=== PATIENT | male | born 1960 | race Caucasian/White ===

== ENCOUNTER → 2021-04-27 15:00 | Outpatient (BNVA) | payer BC, SELFPAY | PROVIDERS: PCP Internal Medicine; Visit Provider Anesthesiology ==

== ENCOUNTER 2022-02-02 06:14 | Outpatient (REF) | payer BC, SELFPAY ==
--- NOTE | ~2022-02-02 | FL_ITS ---
EXAMINATION: XR FLUOROSCOPY WITH IMAGES CLINICAL INFORMATION: M47.812 - Spondylosis without myelopathy or radiculopathy, cervical region COMPARISON: None. TECHNIQUE: Fluoroscopy performed by Dr. David Craft. Fluoroscopy time: 0.2 minutes. Cumulative Dose: 2.94 mGy. DAP: 0.802 Gy-cm2. Images: 3. FINDINGS: There are spinal needles overlying the left lateral masses cervical spine approximately C4, C5, and C6. There is contrast in the paraspinal soft tissues and nerve sheaths. No visible vascular communication. There are degenerative changes cervical spine and hardware. FL/FL guidance in treatment room IMPRESSION: Fluoroscopy for pain management procedure.
== END 2022-02-02 06:15 | disposition home or self-care (01) ==
LOC: HO.RADIR 06:14
PROVIDERS: Visit Provider Anesthesiology
DX: M47.812 Spondylosis without myelopathy or radiculopathy, cervical region (principal); M50.20 Other cervical disc displacement, unspecified cervical region; M50.30 Other cervical disc degeneration, unspecified cervical region; G89.4 Chronic pain syndrome; Z79.891 Long term (current) use of opiate analgesic
CPT/HCPCS: 64490; 64491; J2795; J3300

== ENCOUNTER 2022-04-06 06:03 | Outpatient (REF) | payer BC, SELFPAY ==
--- NOTE | ~2022-04-06 | FL_ITS ---
EXAMINATION: XR FLUOROSCOPY WITH IMAGES CLINICAL INFORMATION: M47.812 - Spondylosis without myelopathy or radiculopathy, cervical region and the COMPARISON: Fluoroscopic spot views 02/02/2022 TECHNIQUE: Fluoroscopy performed by Dr. David Craft. Fluoroscopy time: 0.5 minutes. Cumulative Dose: 3.14 mGy. DAP: 0.632 Gy-cm2. Images: 3. FINDINGS: There are spinal needles overlying the right lateral masses mid to lower cervical spine, approximately C4, C5, and C6. There is contrast in the paraspinal soft tissues and nerve sheaths. No visible vascular communication. There are degenerative changes and prior postsurgical changes with hardware mid to lower cervical spine. FL/FL guidance in treatment room IMPRESSION: Fluoroscopy for pain management procedure.
== END 2022-04-06 06:04 | disposition home or self-care (01) ==
LOC: CF 06:03
PROVIDERS: Visit Provider Anesthesiology
DX: M47.812 Spondylosis without myelopathy or radiculopathy, cervical region (principal); M50.20 Other cervical disc displacement, unspecified cervical region; M50.30 Other cervical disc degeneration, unspecified cervical region; M47.816 Spondylosis without myelopathy or radiculopathy, lumbar region; G89.4 Chronic pain syndrome; Z79.891 Long term (current) use of opiate analgesic
CPT/HCPCS: 64490; 64491; J3300

== ENCOUNTER 2022-07-06 06:01 | Outpatient (REF) | payer BC, SELFPAY ==
--- NOTE | ~2022-07-06 | FL_ITS ---
EXAMINATION: XR FLUOROSCOPY WITH IMAGES CLINICAL INFORMATION: Spondylosis without myelopathy or radiculopathy. COMPARISON: None. TECHNIQUE: Fluoroscopy Supervised By: Iona Springer. Fluoroscopy Time: 0.5 minutes. Cumulative Dose: 7.22 mGy. DAP: 1.96 Gycm2. Images: 6. FINDINGS: There are 6 digital images obtained under fluoroscopy. There is needle positioned adjacent to L5, L4 and L3 pedicles with contrast opacifying the soft tissues. Visualized bones and the adjacent disc levels are unremarkable. FL/FL guidance in treatment room IMPRESSION: Fluoroscopy guidance was provided to referring physician during pain management
== END 2022-07-06 06:02 | disposition home or self-care (01) ==
LOC: CF 06:01
PROVIDERS: Visit Provider Anesthesiology
DX: M47.816 Spondylosis without myelopathy or radiculopathy, lumbar region (principal); M50.20 Other cervical disc displacement, unspecified cervical region; M50.30 Other cervical disc degeneration, unspecified cervical region; M47.812 Spondylosis without myelopathy or radiculopathy, cervical region; G89.4 Chronic pain syndrome; Z79.891 Long term (current) use of opiate analgesic
CPT/HCPCS: 64493; 64494; J2795; Q9965; Q9967

== ENCOUNTER → 2022-07-12 08:06 | Outpatient (BNVA) | payer BC, SELFPAY | PROVIDERS: PCP Internal Medicine; Visit Provider Anesthesiology | DX: Z13.89 Encounter for screening for other disorder (principal) ==

== ENCOUNTER 2022-08-05 13:32 | Outpatient (REF) | payer BC, SELFPAY ==
--- NOTE | ~2022-08-05 | MR_ITS ---
MR LUMBAR SPINE WITHOUT CONTRAST CLINICAL INFORMATION: Spondylosis without myelopathy or radiculopathy. COMPARISON: None available. TECHNIQUE: MRI of the lumbar spine was obtained using routine sequences without contrast. FINDINGS: There are 5 nonrib-bearing lumbar-type vertebral bodies. Lumbar alignment is normal. The vertebral body heights are maintained. There is disc desiccation at all lumbar levels the exception of L1-L2. Disc volumes are overall maintained. There is no bone marrow edema. There are no acute fractures. Conus terminates at the L1-L2 level. There is bilateral perinephric stranding. Retroaortic left renal vein. Hypertrophic degenerative changes across the SI joints bilaterally. L1-L2: Disc contour is normal. There is no central canal stenosis and there is no foraminal stenosis. L2-L3: Small annular disc bulge exhibiting a dorsal annular fissure and mild bilateral facet arthropathy. No central canal stenosis and no foraminal stenosis. L3-L4: Diffuse annular disc bulge exhibiting a dorsal annular fissure. Mild bilateral facet arthropathy. No central canal stenosis and no foraminal stenosis. L4-L5: Diffuse annular disc bulge and severe bilateral facet arthropathy and ligamentum flavum thickening. Findings in concert result in mild to moderate central canal stenosis, narrowing of the subarticular zones bilaterally without traversing nerve root compression, as well as moderate right-sided foraminal stenosis with mass effect on the exiting right L4 nerve root. L5-S1: There is a diffuse annular disc bulge is in part disc osteophyte. Severe bilateral hypertrophic facet arthropathy. A large 1 cm synovial cyst projecting anteriorly from the right facet joint results in severe right S1 lateral recess stenosis with compression of the traversing right S1 nerve root. A smaller synovial cyst projecting anteriorly from the upper aspect of the severely degenerative left facet joint results in mild mass effect on the traversing left S1 nerve root within the left subarticular zone. The central canal remains patent. There is mild foraminal encroachment bilaterally. MR/MR lumbar spine wo con IMPRESSION: - At L5-S1, there is markedly advanced bilateral hypertrophic facet arthropathy and a 1 cm synovial cyst projecting anteriorly from the severely degenerative right-sided facet joint results in severe right S1 lateral recess stenosis with compression of the traversing right S1 nerve root. A smaller synovial cyst projecting anteriorly from the upper aspect of the severely degenerative left facet joint results in mild mass effect on the traversing left S1 nerve root within the left subarticular zone. - At L4-L5, multifactorial degenerative changes result in mild to moderate central canal stenosis, narrowing of the subarticular zones bilaterally without traversing nerve root compression, as well as moderate right-sided foraminal stenosis with mass effect on the exiting right L4 nerve root. - Small dorsal annular fissures at L2-L3 and L3-L4.
== END 2022-08-05 13:33 | disposition home or self-care (01) ==
LOC: HO.MRI 13:32
PROVIDERS: PCP Internal Medicine; Visit Provider Anesthesiology
DX: M47.816 Spondylosis without myelopathy or radiculopathy, lumbar region (principal); G89.4 Chronic pain syndrome
CPT/HCPCS: 72148

== ENCOUNTER 2022-08-10 09:57 | Day surgery (SDC) | payer BC, SELFPAY ==
--- NOTE | ~2022-08-10 | FL_ITS ---
EXAMINATION: XR FLUOROSCOPY WITH IMAGES CLINICAL INFORMATION: Sprint nerve stimulator. COMPARISON: None. TECHNIQUE: Fluoroscopy Supervised By: Dr. David Allan. Fluoroscopy Time: 0.4 minutes. Cumulative Dose: 6.93 mGy. DAP: 1.89 Gycm2. Images: 1. FINDINGS: A single anterior image of cervical spine reveals disc prostheses C6-C7 and C4-C5 disc levels. There is a posterior electrode overlying the left C6 lamina. FL/FL guidance in OR IMPRESSION: Fluoroscopy was provided to referring physician for nerve stimulator placement.
--- NOTE | 2022-08-10 09:24 | MHC.SHP ---
Pre-Procedural Eval Section A Date of Service: 08/10/22 The patient is an INPATIENT: No Changes since office visit: Yes Changes in Medication and Yes Patient answered all questions The History & Physical has been completed within 30 days and I have reviewed it.: No Section B Chief Complaint: Spondylosis without myelopathy or radiculopathy, Details of Present Illness: as above Relevant Family History (Specify if Yes): No Relevant Social History: None Present Medications: see Short Stay Collaborative assessment Medical History: No relevant PMH History of Previous Operations: No relevant previous surgery Allergies: Allergies Allergy/AdvReac Type Severity Reaction Status Date / Time No Known Allergies Allergy Verified 07/12/22 08:07 Review of Systems Sugical H&P ROS: Negative: Constitution, Cardiovascular, Respiratory, Neurological, Psychiatric, Hem-Onc, Allergic/Immunologic, Gastrointestinal, Genitourinary, Musculoskeletal, Integumentary, Endocrine and Eyes/Ears/Nose/Throat Exam Surgical H&P Exam: Normal: HEENT, Normal: Heart, Normal: Lungs, Normal: Extremities, Normal: Abdomen, Normal: Skin and Normal: Neurological Plan Diagnosis/Plan: Unchanged I have reviewed the history and physical and performed a pertinent physical examination on my patient. No changes have occurred unless specified. Time Spent With Patient Time: Total time managing care of this patient today ____ minutes.
[2022-08-10 10:27] VITALS: BMI 25.7
[2022-08-10 10:32] VITALS: BP 154/87; PULSE 63; RESP 16; TEMP 36.8; O2SAT 98
[2022-08-10] MEDS: LORazepam 1 MG TABLET PO (11:20)
--- NOTE | 2022-08-10 12:16 | P.BOP_ITS ---
Brief Operative Note Date of Service: 08/10/22 Pre-op diagnosis: spondylosis cervical spine Post-op diagnosis: same Procedure: SPRINT PNS B/L C5 Implants: none permanent. Surgeon: David Craft MD Anesthesia: local Was an Integration Developer used for this Procedure?: No Estimated blood loss (mL): 0 Condition: stable Disposition: PACU
--- NOTE | 2022-08-10 12:18 | W.PM.OPN ---
Operative Note Operative Note Date of Service: 08/10/22 Narrative: Percutaneous implantation of peripheral nerve stimulation Sprint system bilateral C5. After the risks, benefits and alternatives were discussed with the patient and informed consent was obtained, patient was placed in the prone position and padded to foster comfort. Time out was performed delineating correct site and side of the procedure , name and of the patient, patient participated in time out procedure. Sterily draped C-arm was brought over the operating field and clear picture of the C6 lamina on the right was delineated on the screen. The upper central portion of the lamina was chosen as a target of the neetle tip incertion . After identifying and marking the intended target, the skin around the planned entry point and the subcutaneous tissues were injected with local anesthetic forming skin wheal.. A percutaneous sleeve and stimulating probe lead introduction system were assembled, inserted and advanced through the skin wheal to the point of interest under C-arm view in tunnel vision fashion, the introducer needle was delivered to a location in proximity to the nerve. Multiple stimulation parameters were used to deliver stimulation to the nerve in concert with stimulating at multiple positions around the nerve. Unfortunately nerve target acquisition was not confirmed at this level. The decision was made to move 1 level up and attempt stimulation of C5 location. A percutaneous sleeve and stimulating probe lead introduction system were again assembled inserted and advanced through the skin wheal to the point of interest of L4 vertebra approximately 1/3 of the width of the lamina caudad and approximately 2 in lateral from spinous process on AP view. Here nerve target acquisition was confirmed noting generation of in the corresponding to the nerve being stimulated. Various electrical parameter combinations were tested, and the lead location was adjusted (physically relocated) until the patient indicated overlapping the distribution of the patient?s typical region of pain. The stimulating probe was removed from the introducer and a percutaneous lead was guided through the needle and delivered to a location in similar proximity to the nerve. Final location was verified with electrical stimulation. The introducer needle was removed, and the exposed end of the percutaneous lead was attached to an external stimulator unit. After that the procedure was repeated in the mirroring fashion at left C5 level. At the end of the case various electrical parameter combinations were again tested until the patient indicated paresthesia or muscle tension overlapping the distribution of the patient?s typical region of pain. After confirming that lead impedance was in the normal range, the external unit was detached, the needle was removed, and the lead was anchored at the skin. The lead was threaded into the connector block and electrical continuity and desired patient response was confirmed. The connector block was attached to the external stimulator unit. The site was covered with a sterile occlusive dressing and a image was taken to document final placement. Upon completion of the procedure the patient was taken outside the OR where he recovered uneventfully he went home without immediate complications.
[2022-08-10 12:30] VITALS: BP 162/95; PULSE 63; RESP 18; TEMP 36.7; O2SAT 99
== END 2022-08-10 13:19 | disposition home or self-care (01) ==
PROVIDERS: PCP Internal Medicine; Visit Provider Anesthesiology
PROC: (CPT 64555; principal; 2022-08-10 11:40)
DX: M47.812 Spondylosis without myelopathy or radiculopathy, cervical region (principal); G89.4 Chronic pain syndrome; M50.30 Other cervical disc degeneration, unspecified cervical region; M50.20 Other cervical disc displacement, unspecified cervical region; I10 Essential (primary) hypertension; I25.2 Old myocardial infarction; E78.00 Pure hypercholesterolemia, unspecified; Z79.891 Long term (current) use of opiate analgesic; Z79.82 Long term (current) use of aspirin; Z79.899 Other long term (current) drug therapy
CPT/HCPCS: 64555 ×2; C1778; J2795

== ENCOUNTER → 2022-08-16 14:31 | Outpatient (BNVA) | payer BC, SELFPAY | PROVIDERS: PCP Internal Medicine; Visit Provider Anesthesiology | DX: Z13.89 Encounter for screening for other disorder (principal) ==

== ENCOUNTER → 2022-08-25 08:26 | Outpatient (BNVA) | payer BC, SELFPAY | PROVIDERS: PCP Internal Medicine; Visit Provider Anesthesiology | DX: Z13.89 Encounter for screening for other disorder (principal) ==

== ENCOUNTER → 2022-09-03 08:27 | Outpatient (BNVA) | payer BC, SELFPAY | PROVIDERS: PCP Internal Medicine; Visit Provider Anesthesiology | DX: Z13.89 Encounter for screening for other disorder (principal) ==

== ENCOUNTER → 2022-09-10 08:51 | Outpatient (BNVA) | payer BC, SELFPAY | PROVIDERS: PCP Internal Medicine; Visit Provider Anesthesiology | DX: Z13.89 Encounter for screening for other disorder (principal) ==

== ENCOUNTER → 2022-09-22 09:34 | Outpatient (BNVA) | payer BC, SELFPAY | PROVIDERS: PCP Internal Medicine; Visit Provider Anesthesiology | DX: Z13.89 Encounter for screening for other disorder (principal) ==

== ENCOUNTER → 2022-10-11 08:25 | Outpatient (BNVA) | payer BC, SELFPAY | PROVIDERS: PCP Internal Medicine; Visit Provider Anesthesiology | DX: Z13.89 Encounter for screening for other disorder (principal) ==

== ENCOUNTER 2022-11-30 06:17 | Outpatient (REF) | payer BC, SELFPAY ==
--- NOTE | ~2022-11-30 | FL_ITS ---
EXAMINATION: XR FLUOROSCOPY WITH IMAGES CLINICAL INFORMATION: Mononeuropathy. COMPARISON: None available. TECHNIQUE: Fluoroscopy Supervised By: Dr. Parth Allan. Fluoroscopy Time: 0.5 minutes. Cumulative Dose: 7.19 mGy. DAP: 1.95 Gycm2. Images: 3. FINDINGS: There are 3 digital images obtained with 4 needles positioned adjacent to right iliac crest with contrast opacifying the soft tissues. Iliac crest is grossly unremarkable. FL/FL guidance in treatment room IMPRESSION: Fluoroscopy was provided to referring physician for pain management.
== END 2022-11-30 06:18 | disposition home or self-care (01) ==
LOC: CF 06:17
PROVIDERS: Visit Provider Anesthesiology
DX: M47.816 Spondylosis without myelopathy or radiculopathy, lumbar region (principal); G89.4 Chronic pain syndrome; M47.812 Spondylosis without myelopathy or radiculopathy, cervical region; M50.20 Other cervical disc displacement, unspecified cervical region; M51.36 Other intervertebral disc degeneration, lumbar region; Z79.891 Long term (current) use of opiate analgesic
CPT/HCPCS: 64450; J2795

== ENCOUNTER → 2022-12-02 09:27 | Outpatient (BNVA) | payer BC, SELFPAY | PROVIDERS: PCP Internal Medicine; Visit Provider Anesthesiology ==

== ENCOUNTER → 2023-02-28 14:16 | Outpatient (BNVA) | payer BC, SELFPAY | PROVIDERS: PCP Internal Medicine; Visit Provider Anesthesiology ==

== ENCOUNTER 2023-02-28 14:28 | Outpatient (AMB) | payer BC, SELFPAY ==
--- NOTE | 2023-02-28 14:16 | A.OFFVIS_ITS ---
Intake Intake Visit Reasons: Injection discussion after cluneal RFA denial Allergies No Known Allergies Allergy (Verified 02/28/23 14:17) HPI HPI Comments History of Present Illness Details Gaston is on the phone today to discuss further possibility of treatment of his lower back pain. Since his insurance company decided not to allow cluneal nerve radiofrequency ablation because this procedure in their opinion is experimental my hands are actually tied. His surgeon offered him a surgery on his cyst and possibly this will help his pain in lower back. I recommended him to go back to his surgery. Alternatively he may consider changing his health insurance if it is at all possible. Prior: very pleasant 62 years old gentleman who is suffering from both cervicalgia and lower back pain. He was under desiccation in our office for cervicalgia. He is suffering from postlaminectomy syndrome of cervical spine. We performed cervical PNS sprint for this patient and he reported good pain relief. After the pain in neck became better his pain in the back became more prominent. Will perform sacroiliac joint injection and facet joint injections on the side of the pain however the patient was not feeling any relief from the injections which were diagnostic in nature. 11/30/2022 I performed cluneal nerve block on him. After the cluneal nerve block he reported 50-60% pain improvement, definite improvement in mobility definite improvement in social interactions different improvement in activities of daily living. He reports that he still has significant pain relieve after 2 days after diagnostic injection. Therefore I believe that cluneal nerve is his pain generator. I offered him a choice between therapeutic radiofrequency ablation of the-right cluneal nerves versus PNS curonics/stim wave stimulation. Patient does not want to make a decision right now we will send brochure to him to help him to decide. He will give us a call and he will inform us about his decision. 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 Hypercholesterolemia senior living (current) use of opiate analgesic NSTEMI (non-ST elevated myocardial infarction) Spondylosis, cervical Unspecified essential hypertension Surgical History (Updated 04/27/21 @ 15:21 by GIBSON Martinez) H/O colonoscopy History of knee surgery History of tonsillectomy Review of Systems Const All systems reviewed & are unremarkable except as noted in HPI and below Assessment & Plan Assessment & Plan (1) Spondylosis of lumbar spine: Code(s): M47.816 - Spondylosis without myelopathy or radiculopathy, lumbar region (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: Code(s): Z79.891 - watermelon inspector (current) use of opiate analgesic (3) Chronic pain syndrome: Code(s): G89.4 - Chronic pain syndrome (4) Spondylosis, cervical: Code(s): M47.812 - Spondylosis without myelopathy or radiculopathy, cervical region (5) 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 Plan On the MRI of the lumbar spine this patient presents with large 1 cm synovial cyst compressing passing S1 nerve root on the right. I sent this patient to a neurosurgeon Dr. Dubon and and his impression was that the patient is suffering from facet joint arthropathy. After examining the MRI the neurosurgeons impression was that it is incidental finding and the cyst does not contribute much to his pain syndrome. At the same time on physical exam palpation of the iliac crest on the right result in significant tenderness.He recommended to perform intra-articular diagnostic L4-5 and L5-S1 facet joint injections however his insurance company denied this procedure. This unfortunately stumbles a lot my diagnostic process meanwhile I performed right cluneal nerve block on the patient and he reported not only 50-60% pain improvement for more than 48 hours after the procedure he reported also better activities and abilities to perform the movements in his lower back which he was not able to perform for long period of time. Therefore he was given a choice of RFA versus PNS stim wave. Unfortunately the insurance company again denied radiofrequency ablation of RFA. He left me today under impression that a neurosurgeon offered him procedure on his synovial cyst in the l lumbar sacral spine. I see only 2. ways out of these: He changes his insurance to something more lenient to were the cluneal nerve injection or he try his chances with neuro surgery. Cervicalgia: He reports good improvement on the left and moderate improvement on the right after bilateral sprint insertion in the neck. He reports excellent pain relieve for 60 days after the insertion of the device. Today device is pulled and tip was intact. No infectious complications were noted. Sterile Band-Aid was applied. He reports 0 pain in the neck. He was explained that we can not continue observation and in 6 months from 01/20/2023 when device was initiated we can repeat the procedure if his pain will be back. Patient Instructions: I here by testify that I spent 30 minutes in conversation with this patient as well as in planning his care and organizing his note. 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
== END 2023-02-28 14:37 | disposition home or self-care (01) ==
PROVIDERS: PCP Internal Medicine; Visit Provider Anesthesiology
DX: M47.816 Spondylosis without myelopathy or radiculopathy, lumbar region (principal); Z79.891 Long term (current) use of opiate analgesic; G89.4 Chronic pain syndrome; M47.812 Spondylosis without myelopathy or radiculopathy, cervical region; M50.20 Other cervical disc displacement, unspecified cervical region; M50.30 Other cervical disc degeneration, unspecified cervical region; M51.36 Other intervertebral disc degeneration, lumbar region; G58.9 Mononeuropathy, unspecified
CPT/HCPCS: 99443